=== PATIENT | female | born 1925 | race Caucasian/White ===

== ENCOUNTER 2016-10-24 09:28 | Emergency (ER) | payer OTHER, MEDICARE ==
--- NOTE | 2016-10-24 10:08 | PDOC ---
History of Present Illness - General Chief Complaint: Weakness Stated Complaint: COUGH,WEAKNESS Time Seen by Provider: 10/24/16 09:51 History Source: Patient Exam Limitations: No Limitations - History of Present Illness Initial Comments: 10/24/16 10:29 89 yo F with no significant PMHx presents with 4 day history of worsening productive cough. She states it started with sore throat and runny nose, which then resolved but developed a productive cough. Greenish sputum. She accompanied by fever of 100.4 , chills, and body aches. Denies CP,SUH, palpitations, abd. pain, N/V. Timing/Duration: reports: getting worse Severity: reports: moderate Possible Cause: Yes: unknown cause Past History - Past Medical History Allergies/Adverse Reactions: Allergies Allergy/AdvReac Type Severity Reaction Status Date / Time No Known Allergies Allergy Verified 10/24/16 09:30 Home Medications: Ambulatory Orders Azithromycin [Zithromax 250mg Tablets -] 250 mg PO UTDICT #6 tab 10/24/16 Methylprednisolone [Medrol Dose Bonifacio] 4 mg PO ASDIR #21 tablet 10/24/16 Cardiac Disorders: Yes (A-FIB) Other medical history: ARTHRITIS - Psycho/Social/Smoking Cessation Hx Suicidal Ideation: No Smoking History: Never smoked Review of Systems - Review of Systems Constitutional: Yes: Chills, Fever Respiratory: Yes: Cough, Productive cough. No: Hemoptysis *Physical Exam - Vital Signs Last Vital Signs Temp Pulse Resp BP Pulse Ox 98 F 59 L 19 148/66 97 10/24/16 09:31 10/24/16 09:31 10/24/16 09:31 10/24/16 09:31 10/24/16 09:31 - Physical Exam General Appearance: Yes: Mild Distress HEENT: positive: EOMI, HILARY, TM Bulging, TM Erythema Neck: positive: Supple Respiratory/Chest: positive: Decreased Breath Sounds, Rhonchi (scattered ). negative: Respiratory Distress, Accessory Muscle Use, Stridor, Wheezing Cardiovascular: positive: Regular Rhythm, Regular Rate, S1, S2. negative: Edema , JVD, Murmur Gastrointestinal/Abdominal: positive: Normal Bowel Sounds, Flat, Soft Musculoskeletal: positive: Normal Inspection. negative: CVA Tenderness Extremity: positive: Normal Inspection, Normal Range of Motion Integumentary: positive: Normal Color, Dry, Warm. negative: Cyanotic, Erythema , Jaundice Neurologic: positive: social group worker II-XII NML intact, Fully Oriented, Alert, Normal Mood/ Affect ED Treatment Course - LABORATORY CBC & Chemistry Diagram: 10/24/16 10:50 10/24/16 10:50 Medical Decision Making - Medical Decision Making 10/24/16 10:35 A:89 yo F with no significant PMHx presents with 4 day history of worsening productive cough.Most likely CAP. Possible sepsis. P: * Will do sepsis workup * CBC, CMP, Blood culture, Lactic acid, UA * CXR PA/LAT * Influenza swab. * NS 1L bolus. * Albuterol nebs *DC/Admit/Observation/Transfer Diagnosis at time of Disposition: Acute bronchitis Qualifiers: Bronchitis organism: unspecified organism Qualified Code(s): J20.9 - Acute bronchitis, unspecified - Discharge Dispostion Disposition: HOME Condition at time of disposition: Improved - Prescriptions Prescriptions: Methylprednisolone [Medrol Dose Bonifacio] 4 mg PO ASDIR #21 tablet Azithromycin [Zithromax 250mg Tablets -] 250 mg PO UTDICT #6 tab - Referrals Referrals: Tera Goodman MD [Primary Care Provider] - - Patient Instructions Printed Discharge Instructions: DI for Acute Bronchitis Additional Instructions: Activity as tolerated. Stay hydrated. Blood tests and a chest x-ray showed no acute abnormalities. Your symptoms are likely due to bronchitis, which is an infection/inflammation of the airway. Take azithromycin and Medrol Dosepak as prescribed. Continue your medications as previously prescribed by your physician. You should follow up with Dr. Goodman on Saturday as scheduled regarding today 's emergency department visit. Return to the emergency department for any new or concerning symptoms, particularly fevers, pain or difficulty breathing, severe weakness.
[2016-10-24] MEDS ORDERED: SODIUM CHLORIDE 1,000 ML IV STA (10:10)
[2016-10-24] MEDS ORDERED: ALBUTEROL SO4 0.083% IH SOL 2.5 MG/3 ML VIAL.NEB. NEB ONE ×2 (10:29→11:00)
--- NOTE | 2016-10-24 10:47 | PDOC ---
Attending Attestation - Resident Resident Name: Enrique Reyes - ED Attending Attestation I have performed the following: I have examined & evaluated the patient, The case was reviewed & discussed with the resident, I agree w/resident's findings & plan, Exceptions are as noted - HPI HPI: 10/24/16 10:40 89-year-old female with history of A. fib but no underlying lung disease or diabetes p/w persistent cough productive of green sputum in the setting of recent URI with nasal congestion/sore throat, since resolved. - Physicial Exam PE: 10/24/16 10:47 Afebrile. O2 sat within normal limits. Elderly lady, overall well-appearing and high functioning Wet cough, coarse breath sounds bilaterally - Medical Decision Making 10/24/16 10:48 Patient seen and evaluated with the resident. I agree with the overall evaluation, assessment, and management with the following summary of visit: 89-year-old female presents with persistent cough in the setting of recent URI. Question bronchitis, rule out pneumonia. Sepsis protocol initiated Chest x-ray, nebulizer, IV fluids Reassess 10/24/16 12:35 Looks well, seated in stretcher speaking full sentences. Feels the albuterol helped a little bit, has no leukocytosis and her chest x-ray is clear. Wants to go home. Discussed with Dr. Goodman, who agrees with plan for zpack and medrol dose pack. Pt has appt to see him Saturday, she and understand criteria to return sooner. Discharge Disposition - Diagnosis Acute bronchitis Qualifiers: Bronchitis organism: unspecified organism Qualified Code(s): J20.9 - Acute bronchitis, unspecified - Discharge Dispostion Disposition: HOME Condition at time of disposition: Improved - Prescriptions Prescriptions: Methylprednisolone [Medrol Dose Bonifacio] 4 mg PO ASDIR #21 tablet Azithromycin [Zithromax 250mg Tablets -] 250 mg PO UTDICT #6 tab - Referrals Referrals: Tera Goodman MD [Primary Care Provider] - - Patient Instructions Printed Discharge Instructions: DI for Acute Bronchitis Additional Instructions: Activity as tolerated. Stay hydrated. Blood tests and a chest x-ray showed no acute abnormalities. Your symptoms are likely due to bronchitis, which is an infection/inflammation of the airway. Take azithromycin and Medrol Dosepak as prescribed. Continue your medications as previously prescribed by your physician. You should follow up with Dr. Goodman on Saturday as scheduled regarding today 's emergency department visit. Return to the emergency department for any new or concerning symptoms, particularly fevers, pain or difficulty breathing, severe weakness. Heart Score/ECG Review #1 ECG reviewed & interpreted by me at: 10:30 General ECG Interpretation: Sinus Rhythm, Normal Rate (54), Normal Intervals, No acute ischemic changes
[2016-10-24 11:10] LABS: BASOPHIL 0.3 % (0-2.0); EOSINOPHIL 1.1 % (0-4.5); MCH 33.7 pg (25.7-33.7); MCHC 34.1 g/dl (32.0-36.0); MEAN CELL VOLUME 98.7 fl (80-96); MEAN PLT VOLUME 8.9 fl (7.5-11.1); NEUTROPHILS 64.3 % (42.8-82.8); PLATELET COUNT 129 K/MM3 (134-434); WHITE BLOOD COUNT 5.1 K/mm3 (4.0-10.0)
[2016-10-24 11:44] LABS: ALBUMIN 3.8 g/dl (3.4-5.0); ALK PHOS 67 U/L (45-117); ANION GAP 11 (8-16); BILIRUBIN,TOTAL 0.3 mg/dL (0.2-1.0); CALCIUM 9.2 mg/dL (8.5-10.1); CO2 27 mmol/L (21-32); COCKROFT - GAULT 48.3735; CREATININE 0.7 mg/dL (0.55-1.02); GLUCOSE,RANDOM 67 mg/dL (74-106); SGPT/ALT 20 U/L (12-78); TOT PROT 7.1 g/dl (6.4-8.2)
[2016-10-24 11:49] LABS: SGOT/AST 40 U/L (15-37)
[2016-10-24 12:56] VITALS: BP 140/76; PULSE 63; TEMP 98.2
--- NOTE | 2016-10-24 14:11 | EKG ---
Test Reason : Blood Pressure : / mmHG Vent. Rate : 054 BPM Atrial Rate : 054 BPM P-R Int : 152 ms QRS Dur : 064 ms QT Int : 428 ms P-R-T Axes : 042 036 039 degrees QTc Int : 405 ms SINUS BRADYCARDIA OTHERWISE NORMAL ECG NO PREVIOUS ECGS AVAILABLE Confirmed by MAURICE MOLINA MD ([id number]) on 10/24/2016 2:10:50 PM Referred By: GARTH Confirmed By:MAURICE MOLINA MD
== END 2016-10-24 13:02 | disposition home or self-care (01) ==
LOC: JER 09:28
PROC: 3E0F7GC Introduction of Other Therapeutic Substance into Respiratory Tract, Via Natural or Artificial Opening (ICD-10-PCS; principal; 2016-10-24)
PROC: 3E0337Z Introduction of Electrolytic and Water Balance Substance into Peripheral Vein, Percutaneous Approach (ICD-10-PCS; 2016-10-24)
DX: J20.9 Acute bronchitis, unspecified (principal)
CPT/HCPCS: 36415; 71020-TC; 80053; 83605; 85025; 87040; 87804; 93005; 93010; 94640; 99284-25